=== PATIENT | female | born 1985 | race Caucasian/White ===

== ENCOUNTER 2019-03-27 14:19 | Emergency (ER) | payer OTHER, SELFPAY ==
[2019-03-27 14:51] VITALS: BP 139/92; PULSE 102; RESP 16; TEMP 37.2; O2SAT 100
[2019-03-27 14:59] VITALS: BP 112/77; PULSE 95; RESP 18; TEMP 36.2; O2SAT 98
--- NOTE | 2019-03-27 15:32 | ED.GENADULT ---
HPI - General Adult General Chief complaint: Upper Respiratory Infection Stated complaint: Sore throat/Ear/Headache Time Seen by Provider: 03/27/19 15:35 Source: patient and RN notes reviewed Mode of arrival: ambulatory Limitations: no limitations History of Present Illness HPI narrative: This patient had onset of a sore throat last night with a fever up to 100. She has had no drainage from the ears but has had bilateral ear pain. She has not had any nasal drainage. Is been no cough. Has had no rashes. Her and son were both ill with sore throats this morning and seen and evaluated and treated with antibiotic therapy. Neither of them had strep throat. She has had no exposure to anyone with strep throat, mono, influenza, bronchitis, pneumonia that she is aware of. She has not been traveling. She is otherwise felt well without any nausea, no vomiting, no diarrhea. She has had no hematuria, no dysuria, no pyuria. She has had no rashes. Related Data Home Medications Medication Instructions Recorded Confirmed amlodipine 5 mg PO DAILY 03/27/19 03/27/19 cyclobenzaprine 10 mg PO TID PRN 03/27/19 03/27/19 diclofenac sodium 75 mg PO BID 03/27/19 03/27/19 duloxetine 30 mg PO DAILY 03/27/19 03/27/19 gabapentin 300 mg PO TID 03/27/19 03/27/19 Allergies Allergy/AdvReac Type Severity Reaction Status Date / Time amoxicillin Allergy Unknown rash Verified 03/27/19 15:09 Review of Systems Review of Systems: Narrative: CONSTITUTIONAL: Denies fever, chills, or sweats. Noncontributory except as pertains to the past medical history and history of present illness. EYES: Denies visual changes, redness, or discharge. ENT: Denies rhinorrhea, congestion, sore throat, or otalgia. CARDIOVASCULAR: Denies chest pain, palpitations, or edema. RESPIRATORY: Denies cough or dyspnea. GASTROINTESTINAL: Denies abdominal pain, nausea, vomiting, or diarrhea. GENITOURINARY: Denies dysuria or hematuria. SKIN: Denies rash or itching. MUSCULOSKELETAL: Denies back pain, joint pain, or myalgia. NEUROLOGIC: Denies headache, numbness, or weakness. PSYCHIATRIC: Denies anxiety or depression. PMFSH Comments At time of signature, I have reviewed and agree with nursing past medical, surgical, social, and family history.Please see nursing chart for further information. There is no relevant family history pertinent to the presenting complaint. Exam Narrative: Exam Narrative: GENERAL: Well-appearing, well-nourished, and in no acute distress. HEAD: Normocephalic, atraumatic. EYES: PERRLA and EOMI. EARS: TM's clear bilaterally and the canals are clear. NOSE: Nares clear, no rhinorrhea or epistaxis. THROAT:Mucous membranes moist.Oropharynx is erythematous with exudates present. NECK: Supple. No adenopathy of the neck, supraclavicular, axillary, or inguinal areas. RESPIRATORY: No respiratory distress. Airway patent. Respirations non-labored. Clear to auscultation. There are no wheezes, no rales, no retractions, no use of accessory muscle respirations. Patient's not cyanotic and not dyspneic. Pulse ox on room air is 100%. HEART: Regular rate and rhythm. No murmur heard. Normal peripheral pulses. ABDOMEN: Soft, nontender, nondistended, normal active bowel sounds.No masses. No rebound or guarding, No organomegaly. There is no CVA pain. No pain McBurney's point. The patient is a negative Chiu sign and negative Rovsing sign. There are no pulsatile masses or audible bruits. EXTREMITIES: No clubbing/cyanosis/ edema.Normal strength & range of motion. SKIN: Warm, dry.Normal Color. No skin lesion or skin rashes. Patient is well-nourished well-hydrated has moist mucous membranes and no tenting of the skin. NEURO: Alert and oriented. CN 2-12 grossly intact. No focal deficits. PSYCH: Normal mood and affect. Course Vital Signs Vital signs: Vital Signs Temperature 37.2 C 03/27/19 14:51 Pulse Rate 102 H 03/27/19 14:51 Respiratory Rate 16 03/27/19 14:51 Blo
== END 2019-03-27 15:42 | disposition home or self-care (01) ==
PROVIDERS: Emergency Provider Family Medicine; PCP Physician Assistant
DX: J02.9 Acute pharyngitis, unspecified (principal); I10 Essential (primary) hypertension; M19.90 Unspecified osteoarthritis, unspecified site
CPT/HCPCS: 87081; 87880; 99213; G0463

== ENCOUNTER 2019-12-25 14:55 | Emergency (ER) | payer OTHER, SELFPAY ==
--- NOTE | ~2019-12-25 | XR_ITS ---
XR foot RT min 3V 12/25/2019 15:26 INDICATION: Right foot pain PROCEDURE: 4 views right foot COMPARISON: No prior studies for comparison. FINDINGS: Fracture, dislocation or subluxation is not identified. The soft tissues appear within norm al limits. No foreign bodies are identified. IMPRESSION: 1: NO ACUTE BONE OR JOINT ABNORMALITY IDENTIFIED. Reviewed, dictated and finalized at location A.
--- NOTE | ~2019-12-25 | XR_ITS ---
XR ankle RT min 3V 12/25/2019 15:26 INDICATION: Right ankle pain after fall PROCEDURE: 4 views right ankle COMPARISON: No prior studies for comparison. FINDINGS: Fracture, dislocation or subluxation is not identified. Ankle mortise intact. The soft tiss ues appear within normal limits. No foreign bodies are identified. IMPRESSION: 1: NO ACUTE BONE OR JOINT ABNORMALITY IDENTIFIED. Reviewed, dictated and finalized at location A.
--- NOTE | ~2019-12-25 | XR_ITS ---
XR tibia fibula RT 2V 12/25/2019 15:26 INDICATION: Right leg pain PROCEDURE: 2 views right tibia/fibula COMPARISON: No prior studies for comparison. FINDINGS: Fracture, dislocation or subluxation is not identified. The soft tissues appear within norm al limits. No foreign bodies are identified. IMPRESSION: 1: NO ACUTE BONE OR JOINT ABNORMALITY IDENTIFIED. Reviewed, dictated and finalized at location A.
[2019-12-25 15:03] VITALS: BP 146/88; PULSE 85; RESP 20; TEMP 36.9; O2SAT 100
--- NOTE | 2019-12-25 15:13 | ED.LOWEXIN ---
HPI - Extremity Injury (Lower) General Chief Complaint: Extremity Injury, Lower Stated Complaint: right leg pain/due to fall Time Seen by Provider: 12/25/19 15:13 Source: patient and RN notes reviewed Mode of arrival: ambulatory Limitations: no limitations History of Present Illness HPI Narrative: 34-year-old female who presents to [facility] care with complaints of injury to her right lower leg, right ankle, and right lateral foot which occurred today when she was going up her back porch stairs and her leg went thru the metal riser and she hit her anterior right tibial area fell back and hit her right lateral ankle and foot with pain also to back of foot. Patient has contusion to right anterior proximal lower leg region with some redness and light ecchymosis noted, pain to lateral foot and ankle with radiation of pain to back of foot. Patient is able to move ankle and foot with increase in discomfort voiced, is able to tolerate partial weight bearing. MD complaint: leg injury (right tibial area), ankle injury, foot injury, fall and other Onset (ago): hour(s) Injury: Right: ankle (right foot) and foot (right foot) Type of Injury: blunt Place: home Severity: moderate Severity scale (1-10): 6 Relieving factors: nothing Exacerbating factors: weight bearing and movement Context: fall and direct blow Associated symptoms: able to partially bear weight Other symptoms: none Related Data Home Medications Medication Instructions Recorded Confirmed cyclobenzaprine 10 mg PO TID PRN 03/27/19 12/25/19 linaclotide [Linzess] 290 mcg PO DAILY 12/25/19 12/25/19 sumatriptan succinate [Imitrex] 100 mg PO ONCE 12/25/19 12/25/19 tramadol 50 mg PRN 12/25/19 Allergies Allergy/AdvReac Type Severity Reaction Status Date / Time amoxicillin Allergy Unknown rash Verified 12/25/19 15:16 Review of Systems Review of Systems: Narrative: CONSTITUTIONAL: Denies fever, chills, or sweats. EYES: Denies visual changes, redness, or discharge. ENT: Denies rhinorrhea, congestion, sore throat, or otalgia. CARDIOVASCULAR: Denies chest pain, palpitations, or edema. RESPIRATORY: Denies cough or dyspnea. GASTROINTESTINAL: Denies abdominal pain, nausea, vomiting, or diarrhea. GENITOURINARY: Denies dysuria or hematuria. SKIN: Denies rash or itching. MUSCULOSKELETAL: reports chronic neck pain cervical spinal stenosis, voices pain to lateral right foot and ankle, back of foot and anterior lower leg proximal area, chronic myalgia states fibromyalgia NEUROLOGIC: Denies headache, numbness, or weakness. PSYCHIATRIC:history of anxiety or depression. All systems reviewed & are unremarkable except as noted in HPI and below PMFSH Past Medical History Medical History (Updated 12/27/19 @ 08:59 by Lula Madrid NP) Anxiety Cervical spinal stenosis Constipation Fibromyalgia Hypertension Migraines Osteoarthritis Surgical History Surgical History (Updated 12/27/19 @ 08:52 by Lula Madrid NP) Hx of laparoscopy endometriosis Social History Social History (Updated 12/25/19 @ 15:53 by Lula Madrid NP) Smoking status: Former smoker Tobacco type: cigarettes Smoking end date: 02/24/11 Living arrangements: with family Gender identity (if verbalized by the patient): Female Comments At time of signature, agree with nursing past medical, surgical, social history. There is no relevant family history pertinent to the presenting complaint Exam Narrative: Exam Narrative: GENERAL: Well-appearing, well-nourished, and in no acute distress. HEAD: Normocephalic, atraumatic. EYES: PERRLA and EOMI. ENT: Nares clear, no rhinorrhea or epistaxis. Mucous membranes moist. NECK: Supple.no lymphadenopathy CHEST: Clear to auscultation. No respiratory distress.SAO2 100% on room air HEART: Regular rate and rhythm. No murmur heard. Normal peripheral pulses. ABDOMEN: Soft, nontender, nondistended, normal active bowel sounds. EXTREMITIES: Normal range of motion but with st
== END 2019-12-25 16:10 | disposition home or self-care (01) ==
PROVIDERS: Emergency Provider Registered Nurse; PCP Physician Assistant
DX: S93.401A Sprain of unspecified ligament of right ankle, initial encounter (principal); S96.911A Strain of unspecified muscle and tendon at ankle and foot level, right foot, initial encounter; W10.9XXA Fall (on) (from) unspecified stairs and steps, initial encounter; S90.31XA Contusion of right foot, initial encounter; M79.604 Pain in right leg; Z87.891 Personal history of nicotine dependence; M79.7 Fibromyalgia; I10 Essential (primary) hypertension; M19.90 Unspecified osteoarthritis, unspecified site; M47.812 Spondylosis without myelopathy or radiculopathy, cervical region
CPT/HCPCS: 73590; 73610; 73630; 99214; G0463

== ENCOUNTER 2022-06-25 12:28 | Emergency (ER) | payer OTHER, SELFPAY ==
--- NOTE | ~2022-06-25 | XR_ITS ---
Right foot Technique: AP, oblique, and lateral views were obtained. Clinical History: Injury Findings: There is a transverse, essentially nondisplaced fracture through the base of fifth metatars al. No other fracture or dislocation seen.. Joint spaces are preserved without erosive or degenerativ e change. Soft tissues are unremarkable. Impression: Transverse, essentially nondisplaced fracture of the base of fifth metatarsal. Reviewed, dictated and finalized at location M. Impression: Transverse, essentially nondisplaced fracture of the base of fifth metatarsal.
--- NOTE | ~2022-06-25 | XR_ITS ---
Right ankle Technique: AP, oblique, and lateral views were obtained. Clinical History: Pain Findings: There is a transverse, nondisplaced fracture of the base of the fifth metatarsal. No other fracture or dislocation seen. Ankle mortise and other visualized joint spaces are preserved. Lateral soft tissue swelling noted. Impression: Transverse, nondisplaced fracture of the base of the fifth metatarsal. Lateral soft tissue swelling. Reviewed, dictated and finalized at location . Impression: Transverse, nondisplaced fracture of the base of the fifth metatarsal. Lateral soft tissue swelling.
[2022-06-25 12:40] VITALS: BP 153/86; PULSE 102; RESP 16; TEMP 36.7; O2SAT 99
--- NOTE | 2022-06-25 13:48 | ED.LOWEXIN ---
HPI - Extremity Injury (Lower) General Chief Complaint: Extremity Injury, Lower Stated Complaint: Right foot / ankle injury Time Seen by Provider: 06/25/22 13:48 Source: patient, RN notes reviewed and old records reviewed Mode of arrival: wheelchair Limitations: no limitations History of Present Illness HPI Narrative: 37-year-old female who presents to [facility] per wheelchair with complaints of injury to her right foot and ankle which occurred on Friday when she fell down the concrete steps Patient has acute bruising and swelling to her right foot, has been icing and also has been keeping her foot elevated.Patient has diffuse swelling and purple bruising to her right foot and ankle region Patient reports pain and is unable to bear any weight to right foot. MD complaint: ankle injury (right) and foot injury Onset (ago): day(s) (2) Type of Injury: other (fall on concrete steps) Place: home Severity scale (1-10): 7 Treatments prior to arrival: cold therapy, NSAIDS and other (elevation) Related Data Home Medications Medication Instructions Recorded Confirmed cyclobenzaprine 10 mg tablet 10 mg PO TID PRN Pain 03/27/19 06/25/22 linaclotide 290 mcg capsule 290 mcg PO DAILY 12/25/19 06/25/22 (Linzess) sumatriptan succinate 100 mg 100 mg PO ONCE 12/25/19 12/25/19 tablet (Imitrex) tramadol 50 mg tablet 50 mg PO TID PRN Pain 12/25/19 bupropion HCl 150 mg tablet,12 hr 150 mg PO BID 06/25/22 06/25/22 sustained-release buspirone 10 mg tablet 10 mg PO BID 06/25/22 06/25/22 bgrakislpt-wavzlopxtbrdf-rwpenkjz 1 cap PO Q4-5H PRN Pain, Mild 06/25/22 06/25/22 50 mg-300 mg-40 mg capsule duloxetine 60 mg capsule,delayed 60 mg PO DAILY 06/25/22 06/25/22 release escitalopram oxalate 10 mg tablet 10 mg PO DAILY 06/25/22 06/25/22 methylphenidate HCl 20 mg tablet 20 mg PO BID 06/25/22 06/25/22 omeprazole 40 mg capsule,delayed 40 mg PO DAILY 06/25/22 06/25/22 release Allergies Allergy/AdvReac Type Severity Reaction Status Date / Time amoxicillin Allergy Unknown rash Verified 06/25/22 12:42 Review of Systems Review of Systems: CONSTITUTIONAL: Denies fever, chills, or sweats. EYES: Denies visual changes, redness, or discharge. ENT: Denies rhinorrhea, congestion, sore throat, or otalgia. CARDIOVASCULAR: Denies chest pain, palpitations, or edema. RESPIRATORY: Denies cough or dyspnea. GASTROINTESTINAL: Denies abdominal pain, nausea, vomiting, or diarrhea. GENITOURINARY: Denies dysuria or hematuria. SKIN: Denies rash or itching.bruising and swelling right foot and ankle MUSCULOSKELETAL: Denies back pain,positive for right foot and ankle pain, or myalgia. NEUROLOGIC: Denies headache, numbness, or weakness. PSYCHIATRIC: Positive for history of anxiety or depression. All systems reviewed & are unremarkable except as noted in HPI and below PMFSH Past Medical History Medical History (Updated 06/27/22 @ 11:20 by Lula Madrid NP) Anxiety Cervical spinal stenosis Constipation Fibromyalgia Hypertension Migraines Osteoarthritis Surgical History Surgical History (Updated 12/27/19 @ 08:52 by Lula Madrid NP) Hx of laparoscopy endometriosis Social History Social History (Updated 06/27/22 @ 11:13 by Lula Madrid NP) Smoking status: Current every day smoker Tobacco type: e-cigarettes/vaping Smoking end date: 02/24/11 Additional smoking assessment comments: former cigatette smoker Living arrangements: with family Gender identity (if verbalized by the patient): Female Comments At time of signature, agree with nursing past medical, surgical, social and family history. There is no relevant family history pertinent to the presenting complaint Exam Narrative: GENERAL: Well-appearing, well-nourished, and in no acute distress. HEAD: Normocephalic, atraumatic. EYES: PERRLA and EOMI. ENT: Nares clear, no rhinorrhea or epistaxis. Mucous membranes moist.TM's normal throat pink with no swelling NECK
== END 2022-06-25 14:41 | disposition home or self-care (01) ==
PROVIDERS: Emergency Provider Registered Nurse; PCP Physician Assistant
DX: S90.01XA Contusion of right ankle, initial encounter (principal); S92.351A Displaced fracture of fifth metatarsal bone, right foot, initial encounter for closed fracture; W10.9XXA Fall (on) (from) unspecified stairs and steps, initial encounter
CPT/HCPCS: 29515; 73610; 73630; 99213; G0463